=== PATIENT | female | born 1935 | race Hispanic/Latino ===

== ENCOUNTER → 2019-07-14 | Day surgery (SDC) | payer MEDICARE ==
[2019-07-12 16:13] LABS: BASOPHILS % 0.6 % (0.0-1.0); EOSINOPHILS # (AUTO) 0.1 (0.0-0.4); HEMOGLOBIN 11.7 g/dL (12.0-16.0); LYMPHOCYTES # (AUTO) 2.3 (1.0-3.2); LYMPHOCYTES % 32.4 % (18.0-39.1); MEAN CORPUSCULAR HEMOGLOBIN 22.4 pg (28-32); MEAN CORPUSCULAR HGB CONC 29.3 g/dL (31-35); MEAN CORPUSCULAR VOLUME 76.5 fL (81-99); MONOCYTES # (AUTO) 0.6 (0.2-0.8); MONOCYTES % 8.3 % (4.4-11.3); NEUTROPHILS # (AUTO) 4.1 (2.1-6.9); NEUTROPHILS % 57.3 % (38.7-80.0); PLATELET COUNT 160 x10e3/uL (140-360); RED BLOOD COUNT 5.23 x10e6/uL (3.6-5.1)
[~2019-07-14] MED LIST: FERROUS SULFAT324 MG PO; GLUCAGON FOR INJ 1 MG VIAL ONE; GLYCOPYRROLATE INJ 1MG/ 5 ML SYR ONE; HYOSCYAMINE 0.125 MG TAB ONE; LEXAPRO10 MG PO; LOSARTAN POTASS25 MG PO; NAMENDA10 MG PO; PANTOPRAZOLE SO40 MG PO; PROPOFOL IV EMULSION 10 MG/ML 50 ML VIAL ONE; RANEXA500 MG PO; SIMVASTATIN20 MG PO; VITAMIN D32000 UNIT PO; [UNRECOGNIZED DRUG - OTHER]; jardiance PO
--- OUTSIDE RECORDS SUMMARY | 2019-07-14 06:08 | XMS REPORT ---
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 Allergies, Adverse Reactions, Alerts Allergy Name Allergy Type Status Severity Reaction(s) Onset Date Inactive Date Treating Clinician Comments No Known Allergies DA Active U 2018-12-31 00:00:00 Medications This patient has no known medications. Results Test Description Test Time Test Comments Text Results Atomic Results Result Comments - XR CHEST 2 V 2018-12-31 14:49:00 FAX: Steven Barrientos MD [phone] [place]: St: PRE Name: NDIAYE,POLO [facility] : 1935 Age/S: 83/F [address] [place] [address] Unit #: [id number] Loc: [place] [address] Phys: Steven Michele MD Acct: [id number] Dis Date: Status: PRE SDC PHONE #: [phone] Exam Date: 12/31/2018 1359 FAX #: [phone] Reason: PREOP- CAD EXAMS: CPT CODE: [id number] XR CHEST 2 V 46710 EXAM: PA and lateral chest. EXAM DATE: December 31, 2018 CLINICAL HISTORY: Preop COMPARISON: None Cardiac size is within normal limits. Atherosclerotic calcifications and tortuosity of the intrathoracic aorta is identified. The lungs appear free of acute disease.. Osseous structures demonstrate mild degenerative changes. IMPRESSION: No evidence of acute cardiopulmonary disease. at 4565 Reported and signed by: Lina Burnett M.D. CC: Steven Michele Technologist: RT Roya(Roshni) Trnscrd Date/Time/By: 12/31/2018 (6059) : By: Jason Orig Print D/T: S: 12/31/2018 (3653) PAGE 1 Signed Report BASIC METABOLIC PANEL 2018-12-31 13:29:00 SODIUM (test code=NA) 141 mEq/L 134-147 POTASSIUM (test code=K) 4.5 mEq/L 3.4-5.0 CHLORIDE (test code=CL) 106 mEq/L 100-108 CARBON DIOXIDE (test code=CO2) 33 mEq/L 21-33 ANION GAP (test code=GAP) 7 0-20 GLUCOSE (test code=GLU) 96 mg/dL 70-110 BLOOD UREA NITROGEN (test code=BUN) 18 mg/dL 7-18 GLOMERULAR FILTRATION RATE (test code=GFR) 59.9 70-80 Units of measure=ml/min/1.73 m2 CREATININE (test code=CREAT) 0.9 mg/dL 0.6-1.3 CALCIUM (test code=CA) 9.7 mg/dL 8.0-10.5 PROTHROMBIN [id number] 13:26:00* Test Item Value Reference Range Comments PROTHROMBIN TIME PATIENT (test code=PTP) 12.0 SECONDS 9.3-12.9 INTERNATIONAL NORMAL RATIO (test code=INR) 1.1 0.8-1.2 TARGET INR BY INDICATION Indication INR1. Prophylaxis of venous thrombosis 2.0 - 3.0 (orthopedic surgery), Prophylaxis of venous thrombosis (other than high-risk surgery), Treatment of Deep Vein Thrombosis/Pulmonary Embolism, Prevention of systemic embolism - Tissue heart valves, Acute Myocardial Infarction (to prevent systemic embolism), Valvular heart disease, Atrial Fibrillation, Bileaflet mechanical valve in aortic position.2. Mechanical prosthetic valves (high risk), 2.5 - 3.5 Presence of Lupus Anticoagulant or Antiphospholipid Antibodies, Prevention of systemic embolism - Acute Myocardial Infarction (to prevent recurrent infarct). CBC W/AUTO [id number] 13:18:00* Test Item Value Reference Range Comments WHITE BLOOD CELL (test code=WBC) 6.96 x10 3/uL 4.5-11.0 RED BLOOD CELL (test code=RBC) 4.93 x10 6/uL 3.54-5.02 HEMOGLOBIN (test code=HGB) 13.1 g/dL 11.0-15.0 HEMATOCRIT (test code=HCT) 42.5 % 33.0-45.0 MEAN CELL VOLUME (test code=MCV) 86.2 fL 81.0-99.0 MEAN CELL HGB (test code=MCH) 26.6 pg 27.0-33.0 MEAN CELL HGB CONCETRATION (test code=MCHC) 30.8 g/dL 33.0-37.0 RED CELL DISTRIBUTION WIDTH CV (test code=RDW) 15.1 % 11.5-14.5 RED CELL DISTRIBUTION WIDTH SD (test code=RDW-SD) 47.6 fL 37.0-54.0 PLATELET COUNT (test code=PLT) 174 x10 3/uL 150-400 MEAN PLATELET VOLUME (test code=MPV) 12.0 fL 7.0-9.0 NEUTROPHIL % (test code=NT%) 63.8 % 56.0-77.0 IMMATURE GRANULOCYTE % (test code=IG%) 0.4 % 0.0-2.0 LYMPHOCYTE % (test code=LY%) 26.1 % 14.0-32.0 MONOCYTE % (test code=MO%) 7.6 % 4.8-9.0 EOSINOPHIL % (test code=EO%) 1.4 % 0.3-3.7 BASOPHIL % (test code=BA%) 0.7 % 0.0-2.0 NUCLEATED RBC % (test code=NRBC%) 0.0 % 0-0 NEUTROPHIL # (test code=NT#) 4.43 x10 3/uL 2.0-7.6 IMMATURE GRANULOCYTE # (test code=IG#) 0.03 x10 3/uL 0.00-0.03 LYMPHOCYTE # (test code=LY#) 1.82 x10 3/uL 1.0-3.8 MONOCYTE # (test code=MO#) 0.53 x10 3/uL 0.1-0.8 EOSINOPHIL # (test code=EO#) 0.10 x10 3/uL 0.0-0.2 BASOPHIL # (test code=BA#) 0.05 x10 3/uL 0.0-0.2 NUCLEATED RBC # (test code=NRBC#) 0.00 x10 3/uL 0.0-0.1 MANUAL DIFF REQUIRED (test code=MDIFF) NO
[2019-07-14 09:15] VITALS: BP 133/70
--- NOTE | 2019-07-14 10:34 | Operative Report ---
DATE OF PROCEDURE: 07/14/2019 SURGEON: Peng Sher MD PROCEDURES: EGD with biopsies and colonoscopy with polypectomy. INDICATIONS FOR EGD: Heartburn, indigestion. INDICATIONS FOR COLONOSCOPY: Anemia. MEDICATIONS: The patient was done under MAC, please see anesthesiologist's note. PROCEDURE IN DETAIL: With the patient in left lateral decubitus position, a flexible fiberoptic Olympus gastroscope was introduced into the esophagus under direct visualization without any difficulty. There was some patchy erythema noted in distal esophagus. The scope was then advanced with ease into the stomach traversing a small hiatal hernia. Mucosa overlying the antrum and the body revealed some patchy erythema, [id number]-[id number] edema and biopsies were obtained and sent to stain for H. pylori. An approximately 8 mm ulcer was noted in the antrum without active bleeding or stigmata of recent hemorrhage, that was biopsied. The pylorus was of normal contour and shape, was intubated with ease and the scope was advanced all the way to the second portion of the duodenum. The scope was then withdrawn slowly. Mucosa overlying the proximal second portion appeared to be within normal limits. Two minute nodules were biopsied in the duodenal bulb. The scope was then withdrawn back into the stomach and retroflexed, and mucosa overlying the fundus and cardia appeared to be within normal limits. The scope was then straightened out, it was subsequently withdrawn. The patient tolerated the procedure well. IMPRESSION: 1. Distal esophagitis. 2. Hiatal hernia. 3. Gastritis, biopsied, biopsies sent to stain for H. pylori. 4. Gastric ulcer, antrum, biopsied. 5. Duodenal bulb nodule, biopsied. PLAN: 1. Follow up histology. 2. Increase Protonix to 40 mg one p.o. a.c. b.i.d. PROCEDURE IN DETAIL: The patient was then turned around after adequate lubrication of the anal canal, a flexible fiberoptic Olympus colonoscope was inserted into the rectum with ease and advanced all the way to the cecum. An approximately 6 mm sessile polyp was removed per cold snare polypectomy from the cecum; and at 1 minute polyp in the proximal ascending colon was removed per the cold biopsy forceps. The mucosa overlying the ascending, transverse, descending, sigmoid, and rectum appeared to be within normal limits. The scope was then retroflexed into the distal rectum and moderate-sized internal hemorrhoids were noted, none of which was actively bleeding. The scope was then straightened out, it was subsequently withdrawn. The patient tolerated the procedure well. IMPRESSION: 1. Cecal polyp removed per cold snare polypectomy. 2. Ascending colon polyp removed per cold biopsy forceps. 3. Internal hemorrhoids, none actively bleeding. PLAN: 1. Followup histology. 2. Initiate high-fiber, low-fat diet. 3. Initiate high-fiber supplement. 4. Follow H and H. 5. There would be no need for followup colonoscopy. Peng Sher MD [facility] [place] /[id number] cc: Teo Plunkett MD
== END | disposition home or self-care (01) ==
LOC: OR 06:02
PROVIDERS: ATTEND Internal Medicine Gastroenterology
DX: D64.9 Anemia, unspecified (principal); K59.00 Constipation, unspecified; K30 Functional dyspepsia; Z01.810 Encounter for preprocedural cardiovascular examination; Z01.812 Encounter for preprocedural laboratory examination; I25.10 Atherosclerotic heart disease of native coronary artery without angina pectoris; I65.29 Occlusion and stenosis of unspecified carotid artery; K21.9 Gastro-esophageal reflux disease without esophagitis; E11.9 Type 2 diabetes mellitus without complications; I10 Essential (primary) hypertension; E78.5 Hyperlipidemia, unspecified; I35.0 Nonrheumatic aortic (valve) stenosis; F41.9 Anxiety disorder, unspecified; F03.90 Unspecified dementia, unspecified severity, without behavioral disturbance, psychotic disturbance, mood disturbance, and anxiety; F32.9 Major depressive disorder, single episode, unspecified; K20.9 Esophagitis, unspecified; K44.9 Diaphragmatic hernia without obstruction or gangrene; K29.70 Gastritis, unspecified, without bleeding; K25.9 Gastric ulcer, unspecified as acute or chronic, without hemorrhage or perforation; D12.0 Benign neoplasm of cecum; K64.8 Other hemorrhoids; K29.80 Duodenitis without bleeding; D12.2 Benign neoplasm of ascending colon; K63.5 Polyp of colon
CPT/HCPCS: 36415 ×2; 43239; 45380; 45385; 82948; 85025; 93005; J1610; J2704; J3490; 45378; 45384